=== PATIENT | female | born 1955 | race Caucasian/White ===

== ENCOUNTER 2016-05-07 11:49 | Inpatient (IN) | payer MEDICARE, MEDICAID ==
[~2016-05-07 11:49] MED LIST: ASPIR-TRIN325 M2 PO; ASPIRIN EC325 M1 PO; ASPIRIN LOW STR81 MG PO; ATIVAN1 MG PO; ATIVAN2 M1 PO; ATIVAN2 MG PO; CARBAMAZEPINE400 M1 PO; CITRUCEL POWDE850 GM PO; CITRUCEL413 GM PO; CITRUCEL479 GM PO; CITRUCEL500 MG PO; DEPAKOTE ER500 M1 PO; EQUETRO300 MG PO; EUCERIN CREME120 G1 TP; HYDRALAZINE HC100 M1 PO; HYDRALAZINE HC100 MG PO; HYDRALAZINE HCL50 M1 PO; HYDROCHLOROTHIA25 MG PO; KEPPRA250 M1 PO; KEPPRA500 M3 PO; LAMICTAL100 M2 PO; LASIX20 M1 PO; MELOXICAM15 MG PO; METOPROLOL SUC100 M1 PO; METOPROLOL TAR100 M2 PO; MOBIC15 M1 PO; MOBIC15 M2 PO; NORVASC10 MG PO; POTASSIUM LIQUID PO; POTASSIUM20 MEQ/13 PO; PROCARDIA XL60 MG PO; PROZAC20 M1 PO; PROZAC20 M3 PO; PROZAC20 MG PO; RANITIDINE HCL150 M2 PO; RANITIDINE HCL150 M3 PO; RANITIDINE HCL150 MG PO; RISPERIDONE0.5 M1 PO; TEKTURNA150 MG PO; TEKTURNA300 MG PO; TOPROL PO; TOPROL XL50 MG PO; ZANTAC150 MG PO; [UNRECOGNIZED DRUG - OTHER] PO
[2016-05-07] MEDS ORDERED: ARTHRITIS PAIN650 M5 PO (12:34)
[2016-05-07] MEDS ORDERED: [UNRECOGNIZED DRUG - OTHER] PO (12:36)
[2016-05-07] MEDS ORDERED: ZONEGRAN100 M2 PO (12:37)
[2016-05-07] MEDS ORDERED: ACETAMINOPHEN-CO5 M1 PO (12:46)
[2016-05-07 12:48] LABS: HCT-HEMATOCRIT 35.7 % (34.0-49.0); HGB-HEMOGLOBIN 11.6 gm/dl (12.0-15.5); IMMATURE GRANULOCYTES ABSOLUTE 0.01 tho/cmm (0-0.03); IMMATURE GRANULOCYTES PERCENT 0.3 % (0-0.3); LYMPH % 32.9 % (20-45); LYMPH ABSOLUTE COUNT 0.9 tho/cmm (0.8-4.5); MCH (MEAN CORPUSCULAR HGB) 30.3 pg (28.0-32.0); MCHC MEAN CORPUSCULAR HGB CONC 32.5 % (32.0-36.0); MCV (MEAN CELL VOLUME) 93.2 fl (82.0-96.0); MONO % 4.2 % (0-12); MONOCYTE ABSOLUTE COUNT 0.1 tho/cmm (0.0-1.2); NEUTROPHIL ABSOLUTE COUNT 1.8 tho/cmm (1.6-8.0); NEUTROPHIL-AUTOMATED 1.8 tho/cmm (1.6-8.0); NEUTROPHILS % 62.6 % (40-80); RED BLOOD COUNT 3.83 mil/cmm (4.00-5.20); WHITE BLOOD COUNT 2.9 tho/cmm (4.0-10.0)
[2016-05-07 13:03] LABS: BLOOD UREA NITROGEN 34 mg/dl (6-24); CALCIUM 9.6 mg/dl (8.5-10.5); CARBON DIOXIDE-VENOUS 33 mmol/L (22-32); CHLORIDE 106 mmol/l (96-110); CREATININE 0.92 mg/dl (0.50-1.10); SODIUM 144 mmol/L (135-145); eGFR VALUE FOR BLACK 77 mL/Min
[2016-05-07 13:05] LABS: ANION GAP 10 mmol/L (0-20)
[2016-05-07 13:07] LABS: GLUCOSE 68 mg/dL (70-110); MAGNESIUM 2.2 mg/dl (1.3-2.6); POTASSIUM 5.1 mmol/L (3.7-5.1)
[2016-05-07 13:20] LABS: PROCALCITONIN <0.05 ng/ml (0.05-0.09)
[2016-05-07 13:38] LABS: PLATELET COUNT 41 tho/cmm (150-450)
[2016-05-07 13:56] LABS: URINE APPEARANCE HAZY; URINE BILIRUBIN NEGATIVE (NEG); URINE BLOOD NEGATIVE (NEG); URINE COLOR YELLOW; URINE GLUCOSE (UA) NEGATIVE (NEG); URINE KETONE NEGATIVE (NEG); URINE LEUKOCYTE ESTERASE POSITIVE (NEG); URINE NITRITE POSITIVE (NEG); URINE PROTEIN SMALL (NEG); URINE SPECIFIC GRAVITY 1.015 (1.003-1.030)
[2016-05-07 14:05] LABS: URINE AMORPHOUS 1+; URINE BACTERIA 4+; URINE RBC RARE /[HPF] (0-5); URINE WBC RARE /[HPF] (0-5)
[2016-05-07 14:32] LABS: ALB/GLOB RATIO 0.5 (0.8-2.0); ALBUMIN 2.9 g/dl (3.5-5.0); ALKALINE PHOSPHATASE 113 U/L (33-138); ALT/SGPT 36 U/L (12-78); BILIRUBIN,TOTAL 0.4 mg/dl (0-1.5)
[2016-05-07 14:35] LABS: AST/SGOT 52 U/L (10-40); BILIRUBIN,DIRECT <0.1 mg/dl (0.0-0.3); BILIRUBIN,INDIRECT 0.3 mg/dL (0.0-1.0)
[2016-05-07 14:36] LABS: TSH-THYROID STIMULATING HORM. 4.01 uIU/ml (0.40-3.80)
[2016-05-07 16:25] LABS: T4 (THYROXINE) 11.6 ug/dl (5.0-12.6)
[2016-05-07 16:34] LABS: INR 1.1 INR (0.9-1.1); PROTHROMBIN TIME 12.2 SECONDS (9.0-13.6)
--- NOTE | 2016-05-07 18:30 | NUR ---
1700 RECIEVED FROM ER VIA CART. MOANS WITH TRANSFER TO BED. OPENS EYES AND FOCUSES BRIEFLY. LOOSE NON-PRODUCTIVE COUGH. 1730 #14 NG INSERTED VIA LEFT NARE ON FIRST ATTEMPT WITHOUT DIFFICULTY. BLOOD DRAWN FOR BLOOD BANK. 1815 KUB TAKEN AND REPORT RECIEVED FROM RADIOLOGY. SX FOR MOD. AMT. THICK CREAMY SECRETIONS.
[2016-05-08 03:42] LABS: INR 1.1 INR (0.9-1.1); PROTHROMBIN TIME 12.2 SECONDS (9.0-13.6)
[2016-05-08 03:47] LABS: EOS % 0.3 % (0-7); IMMATURE GRANULOCYTES ABSOLUTE 0.01 tho/cmm (0-0.03); IMMATURE GRANULOCYTES PERCENT 0.3 % (0-0.3); LYMPH % 43.6 % (20-45); LYMPH ABSOLUTE COUNT 1.3 tho/cmm (0.8-4.5); MCV (MEAN CELL VOLUME) 92.6 fl (82.0-96.0); MONO % 4.1 % (0-12); MONOCYTE ABSOLUTE COUNT 0.1 tho/cmm (0.0-1.2); NEUTROPHIL ABSOLUTE COUNT 1.5 tho/cmm (1.6-8.0); NEUTROPHIL-AUTOMATED 1.5 tho/cmm (1.6-8.0); NEUTROPHILS % 51.7 % (40-80); RED BLOOD COUNT 2.82 mil/cmm (4.00-5.20); RED CELL DISTRIBUTION WIDTH 18.3 % (12.4-16.4)
[2016-05-08 03:49] LABS: HCT-HEMATOCRIT 26.1 % (34.0-49.0); HGB-HEMOGLOBIN 8.4 gm/dl (12.0-15.5); MCH (MEAN CORPUSCULAR HGB) 29.7 pg (28.0-32.0); MCHC MEAN CORPUSCULAR HGB CONC 32.2 % (32.0-36.0)
[2016-05-08 03:51] LABS: PLATELET COUNT 30 tho/cmm (150-450)
[2016-05-08 04:40] LABS: PROCALCITONIN <0.05 ng/ml (0.05-0.09)
[2016-05-08 09:23] LABS: ALB/GLOB RATIO 0.6 (0.8-2.0); ALKALINE PHOSPHATASE 77 U/L (33-138); ALT/SGPT 23 U/L (12-78); AMYLASE 183 U/L (20-90); AST/SGOT 25 U/L (10-40); BILIRUBIN,DIRECT <0.1 mg/dl (0.0-0.3); BILIRUBIN,INDIRECT 0.2 mg/dL (0.0-1.0); BILIRUBIN,TOTAL 0.3 mg/dl (0-1.5); BLOOD UREA NITROGEN 20 mg/dl (6-24); CALCIUM 7.4 mg/dl (8.5-10.5); CARBON DIOXIDE-VENOUS 27 mmol/L (22-32); CHLORIDE 112 mmol/l (96-110); GLUCOSE 85 mg/dL (70-110); LIPASE 627 U/L (73-393); MAGNESIUM 1.6 mg/dl (1.3-2.6); SODIUM 145 mmol/L (135-145); eGFR VALUE FOR BLACK 79 mL/Min
[2016-05-08 09:29] LABS: ANION GAP 10 mmol/L (0-20); POTASSIUM 3.9 mmol/L (3.7-5.1)
[2016-05-08 09:56] LABS: ABG CO2 ARTERIAL 26 mmol/L (21-27); ARTERIAL BLD GAS O2 SATURATION 95 % (95-98); ARTERIAL BLOOD GAS PCO2 39 mmHg (32-45); ARTERIAL PO2 69 mmHg (70-100); BICARBONATE 25 mmol/L (21-28); BLOOD GAS BASE EXCESS 1 mM/L (-/+3); PH 7.42 Units (7.35-7.45)
[2016-05-08 12:34] LABS: IRON 172 ug/dl (37-170); IRON BINDING CAPACITY 265 ug/dl (250-450)
[2016-05-09 04:49] LABS: HCT-HEMATOCRIT 25.9 % (34.0-49.0); HGB-HEMOGLOBIN 8.4 gm/dl (12.0-15.5); LYMPH % 31.2 % (20-45); LYMPH ABSOLUTE COUNT 1.1 tho/cmm (0.8-4.5); MCH (MEAN CORPUSCULAR HGB) 29.8 pg (28.0-32.0); MCHC MEAN CORPUSCULAR HGB CONC 32.4 % (32.0-36.0); MCV (MEAN CELL VOLUME) 91.8 fl (82.0-96.0); MONO % 6.1 % (0-12); MONOCYTE ABSOLUTE COUNT 0.2 tho/cmm (0.0-1.2); NEUTROPHIL ABSOLUTE COUNT 2.3 tho/cmm (1.6-8.0); NEUTROPHIL-AUTOMATED 2.3 tho/cmm (1.6-8.0); NEUTROPHILS % 62.7 % (40-80); RED BLOOD COUNT 2.82 mil/cmm (4.00-5.20); RED CELL DISTRIBUTION WIDTH 18.4 % (12.4-16.4); WHITE BLOOD COUNT 3.6 tho/cmm (4.0-10.0)
[2016-05-09 04:53] LABS: INR 1.1 INR (0.9-1.1); PROTHROMBIN TIME 12.6 SECONDS (9.0-13.6)
[2016-05-09 04:55] LABS: PLATELET COUNT 35 tho/cmm (150-450)
[2016-05-09 05:06] LABS: ALB/GLOB RATIO 0.6 (0.8-2.0); ALBUMIN 2.2 g/dl (3.5-5.0); ALKALINE PHOSPHATASE 87 U/L (33-138); ALT/SGPT 25 U/L (12-78); ANION GAP 11 mmol/L (0-20); AST/SGOT 30 U/L (10-40); BILIRUBIN,TOTAL 0.4 mg/dl (0-1.5); BLOOD UREA NITROGEN 12 mg/dl (6-24); CALCIUM 7.8 mg/dl (8.5-10.5); CARBON DIOXIDE-VENOUS 24 mmol/L (22-32); CHLORIDE 115 mmol/l (96-110); CREATININE 0.94 mg/dl (0.50-1.10); SODIUM 146 mmol/L (135-145); eGFR VALUE FOR BLACK 75 mL/Min
[2016-05-09 05:26] LABS: GLUCOSE 63 mg/dL (70-110)
[2016-05-10 03:44] LABS: HCT-HEMATOCRIT 25.4 % (34.0-49.0); HGB-HEMOGLOBIN 8.3 gm/dl (12.0-15.5); IMMATURE GRANULOCYTES ABSOLUTE 0.01 tho/cmm (0-0.03); IMMATURE GRANULOCYTES PERCENT 0.3 % (0-0.3); LYMPH % 20.9 % (20-45); LYMPH ABSOLUTE COUNT 0.8 tho/cmm (0.8-4.5); MCH (MEAN CORPUSCULAR HGB) 29.9 pg (28.0-32.0); MCHC MEAN CORPUSCULAR HGB CONC 32.7 % (32.0-36.0); MCV (MEAN CELL VOLUME) 91.4 fl (82.0-96.0); MONO % 6.3 % (0-12); MONOCYTE ABSOLUTE COUNT 0.2 tho/cmm (0.0-1.2); NEUTROPHIL ABSOLUTE COUNT 2.8 tho/cmm (1.6-8.0); NEUTROPHIL-AUTOMATED 2.8 tho/cmm (1.6-8.0); NEUTROPHILS % 72.5 % (40-80); RED BLOOD COUNT 2.78 mil/cmm (4.00-5.20); RED CELL DISTRIBUTION WIDTH 17.9 % (12.4-16.4); WHITE BLOOD COUNT 3.8 tho/cmm (4.0-10.0)
[2016-05-10 03:56] LABS: ALB/GLOB RATIO 0.5 (0.8-2.0); ALBUMIN 2.1 g/dl (3.5-5.0); ALKALINE PHOSPHATASE 93 U/L (33-138); ALT/SGPT 22 U/L (12-78); ANION GAP 10 mmol/L (0-20); AST/SGOT 31 U/L (10-40); BILIRUBIN,TOTAL 0.5 mg/dl (0-1.5); BLOOD UREA NITROGEN 9 mg/dl (6-24); CARBON DIOXIDE-VENOUS 27 mmol/L (22-32); CHLORIDE 112 mmol/l (96-110); CREATININE 0.99 mg/dl (0.50-1.10); GLUCOSE 72 mg/dL (70-110); POTASSIUM 3.6 mmol/L (3.7-5.1); SODIUM 145 mmol/L (135-145); eGFR VALUE FOR BLACK 70 mL/Min
[2016-05-10 04:24] LABS: PLATELET COUNT 35 tho/cmm (150-450)
[2016-05-11 01:45] LABS: ANION GAP 12 mmol/L (0-20); BLOOD UREA NITROGEN 8 mg/dl (6-24); CALCIUM 8.7 mg/dl (8.5-10.5); CARBON DIOXIDE-VENOUS 25 mmol/L (22-32); CHLORIDE 109 mmol/l (96-110); CREATININE 0.84 mg/dl (0.50-1.10); GLUCOSE 83 mg/dL (70-110); POTASSIUM 3.4 mmol/L (3.7-5.1); SODIUM 143 mmol/L (135-145); eGFR VALUE FOR BLACK 86 mL/Min
[2016-05-11 05:27] LABS: BASO % 0.2 % (0-2); EOS % 0.2 % (0-7); HCT-HEMATOCRIT 27.5 % (34.0-49.0); HGB-HEMOGLOBIN 9.2 gm/dl (12.0-15.5); IMMATURE GRANULOCYTES ABSOLUTE 0.07 tho/cmm (0-0.03); IMMATURE GRANULOCYTES PERCENT 1.1 % (0-0.3); LYMPH % 15.4 % (20-45); MCH (MEAN CORPUSCULAR HGB) 30.1 pg (28.0-32.0); MCHC MEAN CORPUSCULAR HGB CONC 33.5 % (32.0-36.0); MCV (MEAN CELL VOLUME) 89.9 fl (82.0-96.0); MONO % 7.5 % (0-12); MONOCYTE ABSOLUTE COUNT 0.5 tho/cmm (0.0-1.2); NEUTROPHIL ABSOLUTE COUNT 4.9 tho/cmm (1.6-8.0); NEUTROPHIL-AUTOMATED 4.9 tho/cmm (1.6-8.0); NEUTROPHILS % 75.6 % (40-80); RED BLOOD COUNT 3.06 mil/cmm (4.00-5.20)
[2016-05-11 05:46] LABS: INR 1.1 INR (0.9-1.1); PROTHROMBIN TIME 12.7 SECONDS (9.0-13.6)
[2016-05-11 06:04] LABS: ALB/GLOB RATIO 0.4 (0.8-2.0); ALBUMIN 2.3 g/dl (3.5-5.0); ALKALINE PHOSPHATASE 105 U/L (33-138); ALT/SGPT 25 U/L (12-78); ANION GAP 15 mmol/L (0-20); AST/SGOT 36 U/L (10-40); BLOOD UREA NITROGEN 6 mg/dl (6-24); CALCIUM 8.8 mg/dl (8.5-10.5); CARBON DIOXIDE-VENOUS 22 mmol/L (22-32); CHLORIDE 108 mmol/l (96-110); CREATININE 0.82 mg/dl (0.50-1.10); GLUCOSE 90 mg/dL (70-110); MAGNESIUM 1.6 mg/dl (1.3-2.6); POTASSIUM 3.5 mmol/L (3.7-5.1); SODIUM 141 mmol/L (135-145); eGFR VALUE FOR BLACK 88 mL/Min
[2016-05-11 06:13] LABS: PLATELET COUNT 49 tho/cmm (150-450); WHITE BLOOD COUNT 6.5 tho/cmm (4.0-10.0)
[2016-05-11 06:28] LABS: BILIRUBIN,TOTAL 0.8 mg/dl (0-1.5)
[2016-05-12 04:38] LABS: EOS % 0.2 % (0-7); HCT-HEMATOCRIT 27.7 % (34.0-49.0); HGB-HEMOGLOBIN 9.3 gm/dl (12.0-15.5); IMMATURE GRANULOCYTES ABSOLUTE 0.02 tho/cmm (0-0.03); IMMATURE GRANULOCYTES PERCENT 0.4 % (0-0.3); LYMPH % 25.5 % (20-45); LYMPH ABSOLUTE COUNT 1.3 tho/cmm (0.8-4.5); MCH (MEAN CORPUSCULAR HGB) 30.1 pg (28.0-32.0); MCHC MEAN CORPUSCULAR HGB CONC 33.6 % (32.0-36.0); MCV (MEAN CELL VOLUME) 89.6 fl (82.0-96.0); MONOCYTE ABSOLUTE COUNT 0.5 tho/cmm (0.0-1.2); NEUTROPHIL ABSOLUTE COUNT 3.2 tho/cmm (1.6-8.0); NEUTROPHIL-AUTOMATED 3.2 tho/cmm (1.6-8.0); NEUTROPHILS % 64.9 % (40-80); PLATELET COUNT 61 tho/cmm (150-450); RED BLOOD COUNT 3.09 mil/cmm (4.00-5.20); RED CELL DISTRIBUTION WIDTH 17.8 % (12.4-16.4)
[2016-05-13 05:29] LABS: BASO % 0.2 % (0-2); EOS % 0.6 % (0-7); HGB-HEMOGLOBIN 9.3 gm/dl (12.0-15.5); IMMATURE GRANULOCYTES ABSOLUTE 0.01 tho/cmm (0-0.03); IMMATURE GRANULOCYTES PERCENT 0.2 % (0-0.3); LYMPH % 31.9 % (20-45); LYMPH ABSOLUTE COUNT 1.5 tho/cmm (0.8-4.5); MCH (MEAN CORPUSCULAR HGB) 30.1 pg (28.0-32.0); MCHC MEAN CORPUSCULAR HGB CONC 33.2 % (32.0-36.0); MCV (MEAN CELL VOLUME) 90.6 fl (82.0-96.0); MEAN PLATELET VOLUME 12.2 cmc (9.4-12.4); MONO % 8.4 % (0-12); MONOCYTE ABSOLUTE COUNT 0.4 tho/cmm (0.0-1.2); NEUTROPHIL ABSOLUTE COUNT 2.8 tho/cmm (1.6-8.0); NEUTROPHIL-AUTOMATED 2.8 tho/cmm (1.6-8.0); NEUTROPHILS % 58.7 % (40-80); PLATELET COUNT 86 tho/cmm (150-450); RED BLOOD COUNT 3.09 mil/cmm (4.00-5.20); WHITE BLOOD COUNT 4.8 tho/cmm (4.0-10.0)
[2016-05-13 05:38] LABS: ANION GAP 10 mmol/L (0-20); BLOOD UREA NITROGEN 17 mg/dl (6-24); CARBON DIOXIDE-VENOUS 31 mmol/L (22-32); CHLORIDE 110 mmol/l (96-110); CREATININE 0.79 mg/dl (0.50-1.10); GLUCOSE 75 mg/dL (70-110); SODIUM 148 mmol/L (135-145); eGFR VALUE FOR BLACK >90 mL/Min
[2016-05-14 06:30] LABS: ANION GAP 11 mmol/L (0-20); BLOOD UREA NITROGEN 24 mg/dl (6-24); CALCIUM 8.9 mg/dl (8.5-10.5); CARBON DIOXIDE-VENOUS 30 mmol/L (22-32); CHLORIDE 111 mmol/l (96-110); CREATININE 0.63 mg/dl (0.50-1.10); GLUCOSE 73 mg/dL (70-110); SODIUM 149 mmol/L (135-145); eGFR VALUE FOR BLACK >90 mL/Min
[2016-05-14 06:33] LABS: TSH-THYROID STIMULATING HORM. 3.01 uIU/ml (0.40-3.80)
[2016-05-15 06:43] LABS: ANION GAP 9 mmol/L (0-20); BLOOD UREA NITROGEN 31 mg/dl (6-24); CALCIUM 8.7 mg/dl (8.5-10.5); CARBON DIOXIDE-VENOUS 28 mmol/L (22-32); CHLORIDE 113 mmol/l (96-110); GLUCOSE 90 mg/dL (70-110); SODIUM 146 mmol/L (135-145); eGFR VALUE FOR BLACK >90 mL/Min
[2016-05-15 06:48] LABS: POTASSIUM 4.2 mmol/L (3.7-5.1)
[2016-05-18] MEDS ORDERED: TYLENOL325 M2 PO (14:22)
[2016-05-18] MEDS ORDERED: NORVASC10 M2 PO (14:25)
[2016-05-18] MEDS ORDERED: MINOXIDIL10 M1 PO (14:26)
== END 2016-05-18 15:50 | disposition other institution (70) | DRG 871 ==
LOC: EDMED 11:49 → EMR2 15:42 → CCU 17:15 → 5WE 05-10 12:30
PROVIDERS: Emergency Medicine; Internal Medicine; Radiology Diagnostic Radiology; ADMIT Internal Medicine
PROC: B246ZZZ Ultrasonography of Right and Left Heart (ICD-10-PCS; 2016-05-08)
PROC: 05HY33Z Insertion of Infusion Device into Upper Vein, Percutaneous Approach (ICD-10-PCS; 2016-05-10)
PROC: 07DR3ZX Extraction of Iliac Bone Marrow, Percutaneous Approach, Diagnostic (ICD-10-PCS; principal; 2016-05-11)
DX: A41.9 Sepsis, unspecified organism (principal); G92 Toxic encephalopathy; I50.31 Acute diastolic (congestive) heart failure; T68.XXXA Hypothermia, initial encounter; I95.9 Hypotension, unspecified; D61.818 Other pancytopenia; J90 Pleural effusion, not elsewhere classified; F84.0 Autistic disorder; N39.0 Urinary tract infection, site not specified; R13.10 Dysphagia, unspecified; F79 Unspecified intellectual disabilities; Z23 Encounter for immunization; F42.9 Obsessive-compulsive disorder, unspecified; Z86.73 Personal history of transient ischemic attack (TIA), and cerebral infarction without residual deficits
CPT/HCPCS: C1751; C1758; C1830; C9113; G0008; G0009; G0364; J0360; J0690; J0834; J1940; J2250; J2543; J3010; J3370; J3480; J7030; J7050; P9612; Q9967